=== PATIENT | female | born 1940 | race Two or more races ===

== ENCOUNTER 2017-01-18 12:39 | Inpatient (IN) | payer MEDICAID, MEDICARE ==
[~2017-01-18] VITALS: Ht 152.4 cm; Wt 88.0 kg
[~2017-01-18 12:39] MED LIST: ALBU2.5V13 NEB; ALLA266C2 TP; ASPI81TA2 PO; Bisacodyl PO; DOCU-25 PO; ESOM40CA PO; FLUT1DIS3 IH; FURO-144 PO; GABA100C PO; HYDR-3326 PO; HYDR-3976 PO; LACT1CAP72 PO; METO5TAB7 PO; PREG75CA PO; TRAM50TA2 PO
--- NOTE | 2017-01-18 13:45 | NUR ---
bib ra for abnormal labs, dr. villagomez referral, patient is verbally responsive, a/ox 3 x nepali speaking, p atient will be seen by md at bedside, not ambulatory, has a sacral wound, will continue to monitor closely.
[2017-01-18 13:55] LABS: BASOPHILS % (AUTO) 0.4 % (0.0-2.0); EOSINOPHILS # (AUTO) 0.5 /CMM (0.0-0.7); EOSINOPHILS % (AUTO) 4.2 % (0.0-6.0); HEMATOCRIT 24 % (33-45); HEMOGLOBIN 7.7 g/dL (11.5-14.8); LYMPHOCYTES # (AUTO) 2.3 /CMM (0.8-4.8); LYMPHOCYTES % (AUTO) 18.4 % (20.0-44.0); MEAN CORPUSCULAR HEMOGLOBIN 26 PG (26.0-33.0); MEAN CORPUSCULAR HGB CONC 32 g/dl (31.0-36.0); MEAN CORPUSCULAR VOLUME 79 fL (82-100); MONOCYTES # (AUTO) 0.7 /CMM (0.1-1.30); MONOCYTES % (AUTO) 5.6 % (2.0-12.0); NEUTROPHILS % (AUTO) 71.4 % (43.0-81.0); PLATELET COUNT (AUTO) 729 /CMM (150-450); RDW COEFFICIENT OF VARIATION 15.5 (11.5-15.0); RED BLOOD CELL COUNT(AUTO) 3.01 MIL/uL (4.0-5.2); WHITE BLOOD COUNT (AUTO) 12.5 K/uL (4.3-11.0)
[2017-01-18] MEDS ORDERED: RIVA10TA PO (14:05)
[2017-01-18] MEDS ORDERED: PANT40TA2 PO (14:05)
[2017-01-18] MEDS ORDERED: BISA-79 PO (14:05)
[2017-01-18] MEDS ORDERED: ASCO500T9 PO (14:05)
[2017-01-18] MEDS ORDERED: MULT1TAB11 PO (14:05)
[2017-01-18] MEDS ORDERED: FERR-58 PO (14:05)
[2017-01-18] MEDS ORDERED: ARGI1POW13 PO (14:06)
[2017-01-18] MEDS ORDERED: ALBU2.5V38 NEB (14:06)
[2017-01-18 14:09] LABS: INR 1.13 (0.87-1.13); PROTHROMBIN TIME 11.9 SECS (9.5-12.7)
[2017-01-18 14:18] LABS: ALANINE AMINOTRANSFERASE 11 U/L (12-78); ALKALINE PHOSPHATASE 89 U/L (46-116); ASPARTATE AMINOTRANSFERASE 17 U/L (15-37); BILIRUBIN,DIRECT 0.1 mg/dL (0.0-0.2); BILIRUBIN,TOTAL 0.2 mg/dL (0.2-1.0); CALCIUM, SERUM 8.5 mg/dL (8.5-10.1); CARBON DIOXIDE 34 mmol/L (21-32); CHLORIDE 94 mmol/L (98-107); CREATININE 0.8 mg/dL (0.6-1.3); GLUCOSE 100 mg/dL (74-106); LIPASE 260 U/L (73-393); SODIUM SERUM 135 mmol/L (136-145); TOTAL PROTEIN, SERUM 7.3 g/dL (6.4-8.2); UREA NITROGEN, BLOOD 26 mg/dL (7-18)
[2017-01-18 14:19] LABS: POTASSIUM 2.6 mmol/L (3.5-5.1)
[2017-01-18 14:23] LABS: TROPONIN I < 0.017 ng/mL (0.00-0.056)
[2017-01-18] MEDS ORDERED: HYDROMORPHONE 1 MG/1 ML DISP.SYRIN ONE (14:28)
[2017-01-18] MEDS ORDERED: POTASSIUM CL. PREMIX PERIPHER. 50 ML IV SCH ×2 (14:30→15:30)
[2017-01-18] MEDS ORDERED: HYDROMORPHONE 1 MG/1 ML DISP.SYRIN IM ONE (14:30)
--- NOTE | 2017-01-18 14:34 | NUR ---
PAGED DR. BIRMINGHAM
[2017-01-18] MEDS ORDERED: IV SET PRIMARY PUMP SET 1 EA INFUS.SET MC ONE ×2 (14:43→16:24)
[2017-01-18] MEDS ORDERED: IV NS 0.9% 250 ML IV ONE ×3 (14:43→17:39)
[2017-01-18] MEDS ORDERED: POTASSIUM CL. PREMIX PERIPHER. 50 ML ONE (14:43)
--- NOTE | 2017-01-18 15:00 | NUR ---
nurse for room [address] kidd and pharmacy notified of second bag of kcl to be infused on floor,
[2017-01-18 15:30] VITALS: BP 99/66
--- NOTE | 2017-01-18 15:31 | NUR ---
MOBILITY ENGINEERSTRATEGIC BUYER RECEIVED PT A/OX3 ALERT. PT STATES CHRONIC GENERALIZED PAIN WHICH PAIN MEDICATION HELPED IN ER. PT DENIES SOB DIFFICULTY BREATHING AT THIS TIME. CHRONIC NC O2 USER ON 2LPM TOLERATING WELL. PT HAS POTASSIUM INFUSING AT THIS TIME THROUGH IV MIDLINE. FORD RN ASSISTED WITH TRANSLATION. PT PLEASANT AND STARTS TO CRY OUT WHEN PEOPLE WALK AWAY FROM HER SIDE. FREQUENT ROUNDING FOR EMOTIONAL SUPPORT FOR PATIENT. PT APPEARS STABLE AT THIS TIME. AWARE WE WILL TAKE PHOTOS AND COLLECT WOUND CULTURES TO CHECK SKIN. PT LEFT WITH CALL LIGHT IN REACH, BED LOWERED AND LOCKED, RAILS UPX3 FOR SAFETY AND BED ALARM ON. WILL ROUND Q2H OR LESS PER NEEDS
--- NOTE | 2017-01-18 15:45 | NUR ---
LAW OFFICE RECEPTIONIST NOTES TELE AFIB 77
--- NOTE | 2017-01-18 15:55 | NUR ---
ELECTRICIAN THIRD NOTES PER MD BIRMINGHAM REPEAT CBC AT 1900 AND IF HGB 7.7 AND UNDER TRANSFUSE 1 UNIT OF PRBC
[2017-01-18 16:00] VITALS: BP 99/66
[2017-01-18] MEDS ORDERED: MAG HYDROX/AL HYDROX/SIMETH 30 ML UDC PO PRN (16:30)
[2017-01-18] MEDS ORDERED: ZOLPIDEM TARTRATE 5 MG TABLET PO PRN (16:30)
[2017-01-18] MEDS ORDERED: ACETAMINOPHEN 325 MG TABLET PO PRN (16:30)
[2017-01-18] MEDS ORDERED: MAGNESIUM HYDROXIDE 30 ML UDC PO PRN (16:30)
[2017-01-18] MEDS ORDERED: TRAMADOL HCL 50 MG TABLET PO PRN (16:30)
[2017-01-18] MEDS ORDERED: Z GUARD REMEDY 2 OZ OINT TP PRN (16:30)
[2017-01-18] MEDS ORDERED: ONDANSETRON HCL/PF 4 MG/2 ML VIAL IVP PRN (16:30)
[2017-01-18] MEDS: HYDROGEL DRESSING 90 GM TUBE TP SCH (16:50)
[2017-01-18] MEDS: DOCUSATE SODIUM 100 MG CAPSULE PO SCH (16:50)
[2017-01-18] MEDS: FERROUS SULFATE (325 MG) 325 MG/TAB TABLET PO SCH (16:50)
[2017-01-18] MEDS: GABAPENTIN 100 MG CAPSULE PO SCH (16:50)
[2017-01-18] MEDS ORDERED: Medication Not On Formulary EA (Arginine/Ascorbate Sod/Vite AC (Arginaid Powder) 1 EACH) PO SCH (17:00)
--- NOTE | 2017-01-18 18:25 | NUR ---
RADIO JOURNALIST CLOSING PT STABLE WOUND CARE COMPLETED. NO SOB, DIFFICULTY BREATHING AND PT APPEARS STABLE. PT LEFT WITH CALL LIGHT IN REACH, BED LOWERED AND LOCKED, RAILS UPX3 FOR SAFETY AND WILL ENDORSE CARE TO RN FOR JUSTEN. Addendum: 01/18/17 at 1826 by DANYELLE DICKENS RN PT TOLERATING 2LPM NC AND CHA INPLACE AND DRAINING CLEAR YELLOW URINE Addendum: 01/18/17 at 1832 by DANYELLE DICKENS RN CALL LIGHT IN REACH, BED LOWERED AND LOCKED, RAILS UP X3 WITH BED ALARM ON
[2017-01-18 19:51] LABS: BASOPHILS # (AUTO) 0.1 /CMM (0.0-0.2); BASOPHILS % (AUTO) 0.6 % (0.0-2.0); EOSINOPHILS # (AUTO) 0.7 /CMM (0.0-0.7); EOSINOPHILS % (AUTO) 5.5 % (0.0-6.0); HEMATOCRIT 26 % (33-45); HEMOGLOBIN 8.1 g/dL (11.5-14.8); LYMPHOCYTES # (AUTO) 2.9 /CMM (0.8-4.8); LYMPHOCYTES % (AUTO) 21.9 % (20.0-44.0); MEAN CORPUSCULAR HEMOGLOBIN 25 PG (26.0-33.0); MEAN CORPUSCULAR HGB CONC 32 g/dl (31.0-36.0); MEAN CORPUSCULAR VOLUME 80 fL (82-100); MONOCYTES # (AUTO) 0.9 /CMM (0.1-1.30); MONOCYTES % (AUTO) 6.9 % (2.0-12.0); NEUTROPHILS # (AUTO) 8.5 /CMM (1.8-8.9); NEUTROPHILS % (AUTO) 65.1 % (43.0-81.0); PLATELET COUNT (AUTO) 749 /CMM (150-450); RDW COEFFICIENT OF VARIATION 15.7 (11.5-15.0); RED BLOOD CELL COUNT(AUTO) 3.22 MIL/uL (4.0-5.2); WHITE BLOOD COUNT (AUTO) 13.1 K/uL (4.3-11.0)
--- NOTE | 2017-01-18 19:57 | NUR ---
RECEIVED PATIENT IN BED, ALERT AND ORIENTED X3, ANXIOUS, CRYING, NO SOB, NO RESPIRATORY DISTRESS, ON 02 VIA NC, O2 SAT 95%, ABLE TO VERBALIZE NEEDS IN SLOVENIAN, NEEDS TOUR AGENT. PER TOUR AGENT, PATIENT IS HUNGRY, NPO EXCEPT MEDS. ON TELEMETRY WITH READING OF AFIB, CHA CATHETER IS DRAINING WELL. LEFT UPPER ARM MIDLINE IS PATENT AND FLUSHED. EXPLAINED TO PATIENT DIET RESTRICTION. MADE COMFORTABLE, CALL LIGHT WITHIN REACH.
[2017-01-18 20:00] VITALS: BP 99/70
--- NOTE | 2017-01-18 20:02 | NUR ---
PAGED CARDIOVASCULAR PHYSICIAN ASSISTANT MD TO REPORT ALBUMIN LEVEL, AWAITING CALL BACK
--- NOTE | 2017-01-18 20:19 | NUR ---
DR. JENNINGS AGREED TO PUT PATIENT NPO AFTER MIDNIGHT, CAN HAVE FOOD BEFORE THEN. NO NEW ORDER TO REPLACE ALBUMIN.
--- NOTE | 2017-01-18 20:22 | NUR ---
REPEAT CBC DONE 19:34, H/H 8.12/10, NO BLOOD TRANSFUSION, PER ORDER IF HGB IS LOWER THAN 7.7 TRANSFUSE 1 BAG PRBC.
--- NOTE | 2017-01-18 20:45 | NUR ---
PATIENT ATE HALF OF SANDWICH, NO DIFFICULTY SWALLOWING, ABLE TO DRINK WATER AND JUICE WITHOUT COUGHING.
[2017-01-18] MEDS: BISACODYL (5 MG) 5 MG TABLET.DR PO SCH (21:16)
[2017-01-18] MEDS: HYDROCODONE/APAP 5/325MG 1 EACH TABLET PO PRN (23:56)
[2017-01-19] VITALS: BP 113/79
[2017-01-19 04:00] VITALS: BP 104/59
--- NOTE | 2017-01-19 06:30 | NUR ---
PATIENT IS AWAKE AND ALERT, NO SOB, NO DISTRESS, DENIES ANY PAIN AT THIS TIME. SLEPT FOR 6 HOURS. NO ADVERSE CHANGE OF CONDITION DURING SHIFT. WOUND CARE RENDERED, TURNED AND REPOSITIONED. NEEDS ATTENDED, CALL LIGHT WITHIN REACH.
[2017-01-19 07:46] LABS: CALCIUM, SERUM 8.6 mg/dL (8.5-10.1); CREATININE 0.8 mg/dL (0.6-1.3); MAGNESIUM 1.4 mg/dL (1.8-2.4); PHOSPHORUS 3.9 mg/dL (2.5-4.9)
[2017-01-19 07:50] LABS: POTASSIUM 2.7 mmol/L (3.5-5.1)
[2017-01-19 08:00] VITALS: BP 92/60
--- NOTE | 2017-01-19 08:09 | NUR ---
RN AM NOTES Received pt. in stable condition lying peacefully in bed awake. No SOB noted. Will continue to monitor.
[2017-01-19] MEDS: ASPIRIN 81 MG TAB.CHEW PO SCH (08:37)
[2017-01-19] MEDS: ASCORBIC ACID 500 MG TABLET PO SCH (08:38)
[2017-01-19] MEDS: METOLAZONE 2.5 MG TABLET PO SCH (08:38)
[2017-01-19] MEDS: FERROUS SULFATE (325 MG) 325 MG/TAB TABLET PO SCH (08:38)
[2017-01-19] MEDS: DOCUSATE SODIUM 100 MG CAPSULE PO SCH ×2 (08:38→16:10)
[2017-01-19] MEDS: GABAPENTIN 100 MG CAPSULE PO SCH ×3 (08:38→16:10)
[2017-01-19] MEDS: PANTOPRAZOLE 40 MG TABLET.DR PO SCH (08:38)
[2017-01-19] MEDS: FUROSEMIDE 40 MG TABLET PO SCH (08:39)
[2017-01-19] MEDS: MULTIVITAMINS W-MINERALS 1 TAB TABLET PO SCH (08:39)
--- NOTE | 2017-01-19 09:01 | NUR ---
Pt. seen by Dr. Crockett. Ok to start PO intake. No need for any GI procedures
[2017-01-19 09:06] LABS: BASOPHILS % (AUTO) 0.6 % (0.0-2.0); EOSINOPHILS # (AUTO) 0.4 /CMM (0.0-0.7); EOSINOPHILS % (AUTO) 6.1 % (0.0-6.0); HEMATOCRIT 25 % (33-45); HEMOGLOBIN 7.7 g/dL (11.5-14.8); LYMPHOCYTES # (AUTO) 1.4 /CMM (0.8-4.8); LYMPHOCYTES % (AUTO) 19.5 % (20.0-44.0); MEAN CORPUSCULAR HEMOGLOBIN 25 PG (26.0-33.0); MEAN CORPUSCULAR HGB CONC 31 g/dl (31.0-36.0); MEAN CORPUSCULAR VOLUME 80 fL (82-100); MONOCYTES # (AUTO) 0.4 /CMM (0.1-1.30); MONOCYTES % (AUTO) 5.1 % (2.0-12.0); NEUTROPHILS # (AUTO) 4.9 /CMM (1.8-8.9); NEUTROPHILS % (AUTO) 68.7 % (43.0-81.0); PLATELET COUNT (AUTO) 611 /CMM (150-450); RDW COEFFICIENT OF VARIATION 16.3 (11.5-15.0); RED BLOOD CELL COUNT(AUTO) 3.12 MIL/uL (4.0-5.2); WHITE BLOOD COUNT (AUTO) 7.1 K/uL (4.3-11.0)
[2017-01-19] MEDS ORDERED: SECONDARY IV SET 1 EA INFUS.SET MC ONE ×3 (09:40→16:00)
[2017-01-19] MEDS ORDERED: IV SET PRIMARY PUMP SET 1 EA INFUS.SET MC ONE ×2 (09:40→16:05)
[2017-01-19] MEDS ORDERED: IV NS 0.9% 250 ML IV ONE ×3 (09:40→15:54)
[2017-01-19] MEDS: POTASSIUM CL. PREMIX PERIPHER. 50 ML IV SCH ×6 (09:48→16:47)
[2017-01-19 11:14] LABS: EOSINOPHILS % (MANUAL) 4 % (0-4); LYMPHOCYTES % (MANUAL) 15 % (16-48); MONOCYTES % (MANUAL) 3 % (0-11.0); NEUTROPHILS % (MANUAL) 78 (42-76)
[2017-01-19 11:17] LABS: ANISOCYTOSIS 1+; HYPOCHROMASIA 1+; PLATELET ESTIMATE INCREASED
--- NOTE | 2017-01-19 11:45 | NUR ---
Dr. Curtis was informed regarding low H& H level. No new orders at this time.
[2017-01-19] MEDS: HYDROGEL DRESSING 90 GM TUBE TP SCH (12:16)
[2017-01-19] MEDS: Magnesium 1GM/D5W 100ML PREMIX 100 ML IV SCH ×4 (13:45→22:32)
[2017-01-19] MEDS: ALBUTEROL FS 2.5 MG/3 ML VIAL.NEB NEB PRN ×2 (13:51→21:52)
[2017-01-19] MEDS ORDERED: Magnesium 1GM/D5W 100ML PREMIX 100 ML IV SCH (14:30)
[2017-01-19] MEDS ORDERED: FEE PK DOSING 1 MIN EA MC ONE (14:34)
[2017-01-19 16:00] VITALS: BP 130/86
[2017-01-19] MEDS: CEFTRIAXONE 1 G in IV D5W 50 ML IV SCH (16:04)
[2017-01-19] MEDS: VANCOMYCIN 1 GM in IV D5W 250 ML IV SCH (16:46)
--- NOTE | 2017-01-19 18:43 | NUR ---
RN CLOSING NOTES Pt in stable condition. K+ replaced and MG+ running. No SOB or distress noted. Repositioned and kept clean. Will endorse to next shift in stable condition for JUSTEN.
--- NOTE | 2017-01-19 19:15 | NUR ---
RN MS - INITIAL NOTES RECEIVED PATIENT IN BED, CURRENTLY SLEEPING AT THIS TIME. NO S/S OF SOB OR ANY DISCOMFORT NOTED. BED IN LOW POSITION AND LOCKED. SIDERAILS X2 UP. WILL F/U WITH PHARMACY REGARDING MAGNESIUM 1GM. WILL CONTINUE TO MONITOR PATIENT
[2017-01-19 20:00] VITALS: BP 119/65
--- NOTE | 2017-01-19 22:00 | NUR ---
RN MS - NOTES PATIENT IS COMPLAINING OF CHEST PAIN WITH BREATHING. DOES NO RADIATE TO ARM. VITAL SIGNS REMAIN STABLE CURRENTLY AT 128/56, RI: 83, 100% SAT. PER DAUGHTER, PATIENT TAKES THEOPHYLLINE 300MG AT HOME WHENEVER SHE FEELS CHEST PAIN WITH BREATHING. ORDERED STAT EKG, RT INFORMED. WILL INFORM ON-CALL M.Ron.
[2017-01-19] MEDS: BISACODYL (5 MG) 5 MG TABLET.DR PO SCH (22:32)
--- NOTE | 2017-01-19 23:00 | NUR ---
RN MS - NOTES RELAYED EKG INFORMATION TO ON-CALL M.D. ALSO ORDERED THEOPHYLLINE 300MG SR.12. PATIENT REMAINS STABLE. CURRENTLY ASLEEP AT THIS MOMENT.
[2017-01-19] MEDS ORDERED: THEOPHYLLINE ANHYDROUS 300 MG CAP.SR.24H PO SCH (23:30)
[2017-01-19] MEDS ORDERED: THEOPHYLLINE ANHYDROUS 300 MG TAB.SR.12H ONE (23:58)
[2017-01-20] MEDS: THEOPHYLLINE ANHYDROUS 300 MG TAB.SR.12H PO SCH ×3 (00:10→21:26)
[2017-01-20] MEDS: ALBUTEROL FS 2.5 MG/3 ML VIAL.NEB NEB PRN (04:23)
[2017-01-20 07:48] LABS: CALCIUM, SERUM 8.8 mg/dL (8.5-10.1); CREATININE 0.7 mg/dL (0.6-1.3); MAGNESIUM 2.5 mg/dL (1.8-2.4); POTASSIUM 3.1 mmol/L (3.5-5.1)
[2017-01-20 08:00] VITALS: BP 122/76
[2017-01-20] MEDS: PANTOPRAZOLE 40 MG TABLET.DR PO SCH (08:14)
[2017-01-20] MEDS: METOLAZONE 2.5 MG TABLET PO SCH (08:14)
[2017-01-20] MEDS: FUROSEMIDE 40 MG TABLET PO SCH (08:15)
[2017-01-20] MEDS: DOCUSATE SODIUM 100 MG CAPSULE PO SCH ×2 (08:15→17:24)
[2017-01-20] MEDS: HYDROCODONE/APAP 5/325MG 1 EACH TABLET PO PRN ×2 (08:15→20:41)
[2017-01-20] MEDS: MULTIVITAMINS W-MINERALS 1 TAB TABLET PO SCH (08:15)
[2017-01-20] MEDS: GABAPENTIN 100 MG CAPSULE PO SCH ×3 (08:16→17:23)
[2017-01-20] MEDS: ASCORBIC ACID 500 MG TABLET PO SCH (08:16)
[2017-01-20] MEDS: ASPIRIN 81 MG TAB.CHEW PO SCH (08:16)
[2017-01-20] MEDS: HYDROGEL DRESSING 90 GM TUBE TP SCH (08:17)
[2017-01-20 08:28] LABS: BASOPHILS # (AUTO) 0.1 /CMM (0.0-0.2); BASOPHILS % (AUTO) 0.6 % (0.0-2.0); EOSINOPHILS # (AUTO) 0.1 /CMM (0.0-0.7); HEMATOCRIT 25 % (33-45); HEMOGLOBIN 7.9 g/dL (11.5-14.8); LYMPHOCYTES # (AUTO) 1.6 /CMM (0.8-4.8); LYMPHOCYTES % (AUTO) 10.8 % (20.0-44.0); MEAN CORPUSCULAR HEMOGLOBIN 25 PG (26.0-33.0); MEAN CORPUSCULAR HGB CONC 32 g/dl (31.0-36.0); MEAN CORPUSCULAR VOLUME 80 fL (82-100); MONOCYTES # (AUTO) 0.8 /CMM (0.1-1.30); MONOCYTES % (AUTO) 5.4 % (2.0-12.0); NEUTROPHILS # (AUTO) 12.5 /CMM (1.8-8.9); NEUTROPHILS % (AUTO) 82.2 % (43.0-81.0); PLATELET COUNT (AUTO) 815 /CMM (150-450); RDW COEFFICIENT OF VARIATION 16.6 (11.5-15.0); RED BLOOD CELL COUNT(AUTO) 3.12 MIL/uL (4.0-5.2); WHITE BLOOD COUNT (AUTO) 15.2 K/uL (4.3-11.0)
[2017-01-20] MEDS: VANCOMYCIN 1 GM in IV D5W 250 ML IV SCH (09:32)
[2017-01-20] MEDS: POTASSIUM CHLORIDE 20 MEQ TAB.PRT.SR PO SCH ×2 (12:21→13:49)
--- NOTE | 2017-01-20 12:43 | NUR ---
MS RN NOTES MENTIONED TO DR VARGAS WHO IS ON THE FLOOR THAT THE PATIENT HAS EPISODES OF EXTREME ANXIETY. MD GAVE VERBAL ORDER FOR PO ATIVAN 0.5MG Q8H PRN. WILL PLACE ORDER.
[2017-01-20] MEDS ORDERED: SECONDARY IV SET 1 EA INFUS.SET MC ONE (13:59)
[2017-01-20] MEDS: SOD FERRIC GLUC 125 MG in IV NS 0.9% 100 ML IV SCH (14:10)
[2017-01-20 14:58] LABS: APPEARANCE,URINE CLEAR (CLEAR); BILIRUBIN,URINE NEGATIVE (NEGATIVE); BLOOD, URINE NEGATIVE Ery/uL (NEGATIVE); COLOR,URINE YELLOW (YELLOW); KETONES,URINE NEGATIVE (NEGATIVE); LEUKOCYTE ESTERASE ,URINE 1+ (NEGATIVE); NITRITE, URINE NEGATIVE (NEGATIVE); PROTEIN,URINE NEGATIVE (NEGATIVE); UGLUCOSE NEGATIVE (NEGATIVE); UROBILINOGEN,URINE 0.2 EU/dL (0.2)
[2017-01-20] MEDS: CEFTRIAXONE 1 G in IV D5W 50 ML IV SCH (15:35)
[2017-01-20 16:10] LABS: RBC,URINE 0-2 /HPF (0-2)
[2017-01-20 16:11] LABS: ADD URINE CULTURE YES; BACTERIA,URINE Few /HPF (None Seen); SQUAMOUS EPITHELIAL CELL,UR Few /HPF (None Seen)
[2017-01-20 16:14] VITALS: BP 110/62
--- NOTE | 2017-01-20 18:45 | NUR ---
MS RN CLOSING NOTES NO SIGNIFICANT CHANGES IN PATIENT CONDITION THROUGHOUT THE SHIFT. NO SOB OR DISTRESS NOTED AT THIS TIME. PATIENT DENIES PAIN. CHA CATHETER ATTACHED TO DRAINAGE BAG AND DRAINING PAIL YELLOW URINE. BED IN A LOW POSITION, CALL LIGHT WITHIN PATIENT REACH. WILL ENDORSE FOR JUSTEN.
--- NOTE | 2017-01-20 19:10 | NUR ---
MS/LIBRARY CLERK TALKING BOOKS; RECEIVED PT. IN BED SLEEPING. NO S/S OF RESP. DISTRESS. BREATHING NON LABORED AND EVEN. WITH O2 2L NC ON. MIDLINE SULLY INTACT WITH DRESSING. FC INTACT WITH 50 ML CLEAR YELLOW URINE. ON CONTACT ISOLATION OBSERVED. BED ON LOWER POSITION AND LOCKED FOR SAFETY. SIDE RAILS ARE UP FOR SAFETY.
[2017-01-20 20:00] VITALS: BP 112/67
--- NOTE | 2017-01-20 20:40 | NUR ---
MS/GENERAL SALES MANAGER; C/O ABDOMINAL PAIN PER DAUGHTER ON THE PHONE / RETURN TO SERVICE INSPECTOR. NORCO 5- 325 MG 1 TAB. PO Q4 PRN GIVEN SWALLOW OK WITHOUT PROBLEM.
--- NOTE | 2017-01-20 21:25 | NUR ---
MS/SMELTING ENGINEER; PT SLEEPING AT THIS TIME. BREATHING NON LABORED.
[2017-01-20] MEDS: BISACODYL (5 MG) 5 MG TABLET.DR PO SCH (21:27)
--- NOTE | 2017-01-21 02:00 | NUR ---
MS/TRAIN OPERATIONS SUPERVISOR; SLEEPING AT THIS TIME.
--- NOTE | 2017-01-21 04:30 | NUR ---
MS/FINANCIAL SERVICES INTERNSHIP; INCONTINENT OF BM MOD AMOUNT. DANNY ANAL CARE DONE. DRESSING CHANGED TO SACRAL AND RT BUTTOCK DUE STAINED WITH BM. RT LOWER LEG MEPILEX CHANGED. REPOSITIONED TO SUPINE POSITION. PT APPEARED COOPERATIVE .
[2017-01-21] MEDS: VANCOMYCIN 1 GM in IV D5W 250 ML IV SCH (04:51)
--- NOTE | 2017-01-21 05:00 | NUR ---
unable to scan barcode of vanco 1gm IV medication, verified with charger operator helper nurse Maryan RN , right pt, rt time, right dose. administered medication
--- NOTE | 2017-01-21 06:42 | NUR ---
MS/BALL HOLDER; SLEPT FAIRLY. BREATHING NON LABORED. FC INTACT. CONTINUE TO MONITOR. CALL LIGHT WITHIN REACH. WILL ENDORSE TO THE DAY SHIFT NURSE FOR JUSTEN.
[2017-01-21 06:50] LABS: CALCIUM, SERUM 8.6 mg/dL (8.5-10.1); CREATININE 0.7 mg/dL (0.6-1.3)
--- NOTE | 2017-01-21 07:18 | NUR ---
ULTRASOUND COORDINATOR INITIAL NOTES RECEIVED PT. IN BED AWAKE, ALERT AND RESPONSE TO SIMPLE COMMANDS. O2 SUPPLEMENTAL 02 VIA N/C @ 2LPM, NO S/S OF RESPIRATORY DISTRESS NOTED. MIDLINE @ SULLY INTACT AND PATENT. CHA CATH INTACT WITH 100 ML CLEAR YELLOW URINE TO BEDSIDE DRAINAGE BAG. 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 CALL LIGHT WITHIN REACH, BED ON LOW POSITION, LOCKED AND SIDE-RAILS UP. ALL SAFETY MEASURES MAINTAINED. WILL CONTINUE TO MONITOR ACCORDINGLY. Addendum: 01/21/17 at 0749 by BENEDICTO DAY RN ERROR: PATIENT NOT ON TELE BUT MS
[2017-01-21 08:00] VITALS: BP 102/58
[2017-01-21 08:01] LABS: POTASSIUM 2.3 mmol/L (3.5-5.1)
[2017-01-21] MEDS: METOLAZONE 2.5 MG TABLET PO SCH (08:48)
[2017-01-21] MEDS: GABAPENTIN 100 MG CAPSULE PO SCH ×3 (08:48→17:01)
[2017-01-21] MEDS: MULTIVITAMINS W-MINERALS 1 TAB TABLET PO SCH (08:48)
[2017-01-21] MEDS: DOCUSATE SODIUM 100 MG CAPSULE PO SCH ×2 (08:48→17:01)
[2017-01-21] MEDS: FUROSEMIDE 40 MG TABLET PO SCH (08:49)
[2017-01-21] MEDS: ASCORBIC ACID 500 MG TABLET PO SCH (08:49)
[2017-01-21] MEDS: PANTOPRAZOLE 40 MG TABLET.DR PO SCH (08:51)
[2017-01-21] MEDS: ASPIRIN 81 MG TAB.CHEW PO SCH (08:52)
[2017-01-21] MEDS: HYDROGEL DRESSING 90 GM TUBE TP SCH (08:52)
[2017-01-21] MEDS: HYDROCODONE/APAP 5/325MG 1 EACH TABLET PO PRN (08:56)
--- NOTE | 2017-01-21 09:40 | NUR ---
RN NOTES PATIENT NOTED WITH POTASSIUM LEVEL OF 2.3, MD MADE AWARE WITH ORDER TO GIVE 80MEQ OF KCL TAB ORALLY TODAY. WILL CONTINUE TO MONITOR
[2017-01-21] MEDS: THEOPHYLLINE ANHYDROUS 300 MG TAB.SR.12H PO SCH ×2 (09:53→22:09)
[2017-01-21 10:24] LABS: BASOPHILS # (AUTO) 0.1 /CMM (0.0-0.2); EOSINOPHILS # (AUTO) 0.3 /CMM (0.0-0.7); EOSINOPHILS % (AUTO) 2.1 % (0.0-6.0); HEMATOCRIT 25 % (33-45); HEMOGLOBIN 7.7 g/dL (11.5-14.8); LYMPHOCYTES # (AUTO) 1.6 /CMM (0.8-4.8); LYMPHOCYTES % (AUTO) 13.3 % (20.0-44.0); MEAN CORPUSCULAR HEMOGLOBIN 25 PG (26.0-33.0); MEAN CORPUSCULAR HGB CONC 31 g/dl (31.0-36.0); MEAN CORPUSCULAR VOLUME 81 fL (82-100); MONOCYTES # (AUTO) 0.7 /CMM (0.1-1.30); MONOCYTES % (AUTO) 5.4 % (2.0-12.0); NEUTROPHILS # (AUTO) 9.5 /CMM (1.8-8.9); NEUTROPHILS % (AUTO) 78.2 % (43.0-81.0); PLATELET COUNT (AUTO) 754 /CMM (150-450); RDW COEFFICIENT OF VARIATION 16.4 (11.5-15.0); RED BLOOD CELL COUNT(AUTO) 3.06 MIL/uL (4.0-5.2); WHITE BLOOD COUNT (AUTO) 12.2 K/uL (4.3-11.0)
[2017-01-21] MEDS: POTASSIUM CHLORIDE 20 MEQ TAB.PRT.SR PO SCH ×2 (11:39→14:36)
[2017-01-21] MEDS: SOD FERRIC GLUC 125 MG in IV NS 0.9% 100 ML IV SCH (14:34)
[2017-01-21] MEDS: CEFTRIAXONE 1 G in IV D5W 50 ML IV SCH (15:23)
[2017-01-21 16:00] VITALS: BP 106/71
[2017-01-21] MEDS: ALBUTEROL FS 2.5 MG/3 ML VIAL.NEB NEB PRN (17:52)
--- NOTE | 2017-01-21 18:44 | NUR ---
RN CLOSING NOTES PATIENT RESTING IN BED ALERT AND ORIENTED X 3. HEAD OF BED ELEVATED. ALL NEEDS AND CARE WELL PROVIDED. DUE MEDS GIVEN ORDERED. MAINTAINED ON 02 VIA N/C @ 2LPM, NO ACUTE SIGNS OF RESPIRATORY DISTRESS NOTED. CALL LIGHT WITHIN REACH. BED LOW AND LOCKED WITH SIDE-RAILS UP. PATIENT NOTED WITH HGB OF 7.7, WENT TO COLLECT PRBC X1 UNIT BUT SAID THAT TYPE AND SCREEN SHOULD BE TAKEN FIRST THEN LAB WILL CALL FOR RESULT BEFORE BLOOD TO BE TRANSFUSED. ALL SAFETY MEASURES MAINTAINED. WILL ENDORSED TO RN NURSE FOR CONTINUITY OF CARE.
[2017-01-21] MEDS ORDERED: IV NS 0.9% 250 ML IV ONE (19:07)
[2017-01-21 19:13] LABS: CALCIUM, SERUM 8.7 mg/dL (8.5-10.1); CREATININE 0.8 mg/dL (0.6-1.3)
--- NOTE | 2017-01-21 19:30 | NUR ---
MS/DENTAL SECRETARY; RECEIVED PT. IN BED AWAKE, ALERT AND VERBALLY RESPONSIVE. BREATHING NON LABORED. WITH O2 2L NC. MIDLINE ON SULLY INTACT. FC INTACT WITH CLEAR YELLOW URINE 50 ML. BED ON LOWER POSITION AND LOCKED FOR SAFETY. SIDE RAILS ARE UP FOR SAFETY. ON CONTACT ISOLATION OBSERVED.
[2017-01-21 19:36] LABS: POTASSIUM 2.6 mmol/L (3.5-5.1)
[2017-01-21] MEDS ORDERED: BLOOD IV SET 1 EA INFUS.SET MC ONE (19:50)
--- NOTE | 2017-01-21 19:53 | NUR ---
RN NOTES RECEIVED CALL FROM LAB THAT PATIENT HAS POTASSIUM LEVEL OF 2.6 AND SODIUM LEVEL OF 132. CALLED [facility] OF DOCTORS AND INFORMED THAT DR Jose GANDHI IS THE DOCTOR OUTBOUND CALL CENTER REPRESENTATIVE TONIGHT. MANAGER GENERAL WILL INFORMED DR GANDHI AND WILL CALL BACK. ENDORSED TO FIREWORKS ASSEMBLY SUPERVISOR RN TO FOLLOW-UP
[2017-01-21] MEDS ORDERED: SECONDARY IV SET 1 EA INFUS.SET MC ONE (19:54)
[2017-01-21 20:00] VITALS: BP 141/71
--- NOTE | 2017-01-21 20:21 | NUR ---
RN NOTES PATIENT NOTED WITH HGB OF 7.7 WITH STANDING ORDER TO GIVE 1U BAG OF PRBC IF HGB IS 7.7 AND BELOW. TWO RN NURSES OBTAINED TELEPHONE CONSENT FROM GRANDDAUGHTER CECI FAN. SCREEN AND TYPE DONE AT LAB. 1 UNIT OF PRBC COLLECTED AND VERIFIED BY 2 NURSES BEFORE STARTED. V/S CHECKED AND RECORDED. WILL CLOSELY MONITOR FOR ANY ADVERSE REACTIONS.
[2017-01-21 20:22] VITALS: BP 141/71
[2017-01-21 21:15] VITALS: BP 131/81
[2017-01-21] MEDS ORDERED: POTASSIUM CHLORIDE 20 MEQ TAB.PRT.SR PO ONE ×2 (21:30)
[2017-01-21] MEDS ORDERED: POTASSIUM CHLORIDE 10 MEQ/50 ML PREMIXED IVPB FOR PERIPHERAL LINE IV ONE (21:30)
--- NOTE | 2017-01-21 21:30 | NUR ---
MS/DEPENDENCY DIRECTOR; NOTED MIDLINE SULLY IS SWOLLEN. BLOOD TRANSFUSION ON HOL FOR AWHILE UNTIL NEW IV LINE IS INSERTED. MORTICIAN SUPPLIES SALES REPRESENTATIVE ANNA STARTED NEW IV LINE ON RT HAND # 20. BLOOD TRANSFUSION RESUMED BY THE CHARGE NURSE. NO REACTIONS NOTED. BREATHING NON LABORED. WILL CONTINUE TO MONITOR.
[2017-01-21] MEDS: BISACODYL (5 MG) 5 MG TABLET.DR PO SCH (22:11)
[2017-01-22] VITALS: BP 116/62
[2017-01-22] MEDS ORDERED: POTASSIUM CL. PREMIX PERIPHER. 0 ML ONE (00:22)
--- NOTE | 2017-01-22 00:30 | NUR ---
MS/FEEDER WORKER POWER UNIT OPERATOR; I PLACED A CALL TO MODESTO GANDHI NP THAT PT REFUSED K PO. MODESTO GANDHI NP SAID IF K REPLACEMENT IV WILL TAKE HOURS. SO SHE TO GIVE PO.
[2017-01-22] MEDS ORDERED: POTASSIUM CHLORIDE 20 MEQ TAB.PRT.SR PO ONE (00:41)
--- NOTE | 2017-01-22 00:50 | NUR ---
MS/MEAT COUNTER CLERK; SO K 80 MEQ PO GIVEN WITH APPLE SAUCE TAKEN.
--- NOTE | 2017-01-22 02:05 | NUR ---
MS/CASE FILLER; C/O ABDOMINAL PAIN. PT REFUSED NORCO 5-325 MG PO 1 TAB. Q4 PRN.
[2017-01-22] MEDS: LORAZEPAM 0.5 MG TABLET PO PRN ×2 (02:55→20:57)
--- NOTE | 2017-01-22 02:55 | NUR ---
MS/CLIENT COORDINATOR; PT VERY ANXIOUS , CRYING OFFERED ATIVAN 0.5 MG 1 TAB. PO Q8 PRN PT REFUSED. PT WITH GESTURE WANTS BREATHING TREATMENT. O2 SAT 95 % ON 2L NC. TEDDY GALLO RN CAME TO HELP US INTERPRET WHAT PT'S WANTS STILL SAYING BREATHING TREATMENT. RT WAS CALLED 3X SAID COMING. ALSO AT THIS TIME AM CARE DONE AND TREATMENT TO SACRAL AND BUTTOCK DONE. REPOSITIONED FOR COMFORT. WILL CONTINUE TO MONITOR.
[2017-01-22] MEDS: ALBUTEROL FS 2.5 MG/3 ML VIAL.NEB NEB PRN ×2 (03:53→13:11)
--- NOTE | 2017-01-22 04:00 | NUR ---
MS/KRISTEN; RT MILIND CAME AND GAVE BREATHING TREATMENT.
--- NOTE | 2017-01-22 07:00 | NUR ---
MS/RECORDS SECTION SUPERVISOR; NO REACTION FROM THE BLOOD TRANSFUSION LAST NIGHT. FC INTACT. CONTINUE TO MONITOR. CALL LIGHT WITHIN REACH. WILL ENDORSE TO THE DAY SHIFT NURSE.
--- NOTE | 2017-01-22 07:09 | NUR ---
MS RN INITIAL NOTES RECEIVED PATIENT AWAKE IN BED IN NO ACUTE SIGNS OF DISTRESS. ALERT AND ORIENTED X 3. SPEAKS AMHARIC AND VERY LIMITED [place], NO COMPLAINTS OF PAIN VOICED OR DISCOMFORTS AT THIS TIME. ON 02 VIA N/C @ 2LPM, NO SIGNS OF SOB NOTED. IV ACCESS ON RIGHT HAND G#20 INTACT AND PATENT. MIDLINE ON SULLY INTACT BUT SITE SLIGHTLY SWOLLEN. CHA IN PLACE AND ACTIVELY VOIDING CLEAR YELLOW URINE. CALL LIGHT WITHIN PLACE. BED LOW AND LOCKED FOR SAFETY. WILL CONTINUE TO MONITOR ACCORDINGLY.
[2017-01-22 07:50] VITALS: BP 115/71
[2017-01-22 08:00] VITALS: BP 115/71
[2017-01-22 08:16] LABS: BASOPHILS % (AUTO) 0.1 % (0.0-2.0); EOSINOPHILS % (AUTO) 0.1 % (0.0-6.0); HEMATOCRIT 27 % (33-45); HEMOGLOBIN 8.7 g/dL (11.5-14.8); LYMPHOCYTES # (AUTO) 0.8 /CMM (0.8-4.8); LYMPHOCYTES % (AUTO) 6.1 % (20.0-44.0); MEAN CORPUSCULAR HEMOGLOBIN 25 PG (26.0-33.0); MEAN CORPUSCULAR HGB CONC 32 g/dl (31.0-36.0); MEAN CORPUSCULAR VOLUME 79 fL (82-100); MONOCYTES # (AUTO) 0.5 /CMM (0.1-1.30); NEUTROPHILS # (AUTO) 11.3 /CMM (1.8-8.9); NEUTROPHILS % (AUTO) 89.7 % (43.0-81.0); PLATELET COUNT (AUTO) 730 /CMM (150-450); RDW COEFFICIENT OF VARIATION 17.5 (11.5-15.0); RED BLOOD CELL COUNT(AUTO) 3.45 MIL/uL (4.0-5.2); WHITE BLOOD COUNT (AUTO) 12.6 K/uL (4.3-11.0)
[2017-01-22 08:28] LABS: CALCIUM, SERUM 8.8 mg/dL (8.5-10.1); CREATININE 0.7 mg/dL (0.6-1.3); MAGNESIUM 1.9 mg/dL (1.8-2.4); PHOSPHORUS 3.2 mg/dL (2.5-4.9); POTASSIUM 3.6 mmol/L (3.5-5.1)
[2017-01-22] MEDS: MULTIVITAMINS W-MINERALS 1 TAB TABLET PO SCH (08:29)
[2017-01-22] MEDS: DOCUSATE SODIUM 100 MG CAPSULE PO SCH ×2 (08:29→16:55)
[2017-01-22] MEDS: PANTOPRAZOLE 40 MG TABLET.DR PO SCH (08:29)
[2017-01-22] MEDS: GABAPENTIN 100 MG CAPSULE PO SCH ×3 (08:29→16:55)
[2017-01-22] MEDS: ASPIRIN 81 MG TAB.CHEW PO SCH (08:29)
[2017-01-22] MEDS: FUROSEMIDE 40 MG TABLET PO SCH (08:30)
[2017-01-22] MEDS: METOLAZONE 2.5 MG TABLET PO SCH (08:30)
[2017-01-22] MEDS: ASCORBIC ACID 500 MG TABLET PO SCH (08:30)
[2017-01-22] MEDS: THEOPHYLLINE ANHYDROUS 300 MG TAB.SR.12H PO SCH ×2 (08:32→21:04)
[2017-01-22] MEDS: HYDROGEL DRESSING 90 GM TUBE TP SCH (08:33)
[2017-01-22] MEDS: SULFAMETH/TRIMETH 800/160 MG 1 UDTAB TABLET PO SCH ×2 (11:31→20:56)
[2017-01-22] MEDS ORDERED: LORAZEPAM INJ 2 MG/ML VIAL IVP ONE (12:20)
[2017-01-22] MEDS ORDERED: HYDROMORPHONE 1 MG/1 ML DISP.SYRIN IV ONE (13:00)
--- NOTE | 2017-01-22 13:03 | NUR ---
RN NOTES PATIENT'S NOTED VERY RESTLESS AND SCREAMING NON-STOP, EMOTIONAL SUPPORT GIVEN. MD MADE AWARE WITH ORDER TO GIVE ATIVAN .5MG IVP BUT CANCELLED INSTEAD ORDERED DILAUDED 1MG IVP. MD ORDERED ALSO TO REMOVED MIDLINE ON LEFT UPPER ARM BECAUSE ARM IS SWOLLEN AND TO DO ULTRASOUND ON SAID ARM TO R/O DVT. WILL CONTINUE TO MONITOR.
--- NOTE | 2017-01-22 14:04 | NUR ---
RN NOTES FOLLOW-UP ON PATIENT'S STATUS, SHE CALMED DOWN A BIT AND SHOUTS OCCASIONALLY. MIDLINE TO LEFT UPPER RIGHT REMOVED @ 1PM WITH NO BLEEDING NOTED. PRESSURE GAUZE APPLIED PRECAUTION. AWAITING FOR ULTRASOUND OF UPPER ARM TO BE DONE TO R/O DVT.
[2017-01-22] MEDS: SOD FERRIC GLUC 125 MG in IV NS 0.9% 100 ML IV SCH (14:57)
[2017-01-22] MEDS ORDERED: IV NS 0.9% 250 ML IV ONE (15:01)
[2017-01-22 16:00] VITALS: BP 125/78
[2017-01-22 16:11] VITALS: BP 125/78
--- NOTE | 2017-01-22 18:35 | NUR ---
RN NOTES PATIENT LEFT UPPER EXTREMITY VENOUS STUDY SHOWS NO DVT. WILL CONTINUE TO MONITOR
--- NOTE | 2017-01-22 19:05 | NUR ---
RN CLOSING NOTES PATIENT IN BED RESTING AT MODERATE HIGH BACKREST IN NO ACUTE SIGNS OF DISTRESS. ALERT AND ORIENTED X 3. QUIETL AT THIS TIME. ALL NEEDS AND CARE WELL PROVIDED. DUE MEDS GIVEN ORDERED. IV ACCESS TO RIGHT HAND, NO SIGNS OF INFILTRATION NOTED. O2 INHALATION VIA N/C @ 2LPM IN PROGRESS AND TOLERATED, 02 SAT ABOVE 94%. CHA IN PLACE WITH URINE OUTPUT OF 400ML THIS TOUR. CALL LIGHT KEPT WITHIN REACH. BED KEPT LOW AND LOCKED. WILL ENDORSED TO COIN BOX INSPECTOR FOR CONTINUITY OF CARE.
--- NOTE | 2017-01-22 19:30 | NUR ---
RN OPENING; RECEIVED PATIENT SLEEPING COMFORTABLY IN BED, ALERT AND COHERENT X3,ON ISOLATION PRECAUTION FOR MRSA WOUND(SACRAL AREA),ABLE TO MAKE NEEDS KNOWN,ON 02 AT 2L/MIN SPO2-94%, ON CHA CATH DRAINING WELL INTO YELLOWISH COLORED URINE,NO PAIN AND DISCOMFORT NOTED,NOT IN RESPIRATORY DISTRESS.BED LOW AND LOCKED,CALL LIGHT WITH IN REACH.
[2017-01-22 20:00] VITALS: BP_SYST 110; BP_SYST 79; BP_DIAS 41; BP_DIAS 54
[2017-01-22] MEDS: BISACODYL (5 MG) 5 MG TABLET.DR PO SCH (20:56)
--- NOTE | 2017-01-23 03:24 | NUR ---
RN NOTES: ABLE TO SLEEP WELL, AWAKE, NEEDS ATTENDED, EAT LITTLE AMOUNT OF HER FOOD FROM HOME AND TOOK SIPS OF WATER,KEEP ON HIGH FOWLERS POSITION.BED LOW AND LOCK, CALL LIGHT WITHIN REACH.
[2017-01-23 04:34] VITALS: BP 86/49
--- NOTE | 2017-01-23 05:27 | NUR ---
RN NOTES HAD BM,SMALL AMOUNT OF FORMED STOOL,BED BATH RENDERED CLEAN AND CHANGE, DRESSING CHANGE ON THE PRESSURE SORE AREA IN THE SACROCOCCYX AND ON THE LLE,OFF LOADING. PATIENT TOLERATE THE DRESSING CHANGE WELL.CALL LIGHT WITHIN REACH.
--- NOTE | 2017-01-23 07:00 | NUR ---
RN NOTES: ENDORSED TO MORNING SHIFT FOR CONTINUITY OF CARE,DRESSING IS INTACT, CALLS AND NEEDS ATTENDED, BED LOW AND LOCKED,ALARM ON AT ALL TIMES,CALL LIGHT WITH IN REACH, ISOLATION PRECAUTION OBSERVE.
--- NOTE | 2017-01-23 07:10 | NUR ---
MS RN INITIAL NOTES PATIENT IN BED, AWAKE. A/O X3. BREATHING EVEN AND NON LABORED, ON OXYGEN AT 2L/MIN VIA NC, NO SOB NOTED. IV IN RIGHT HAND G20 PATENT AND INTACT, FLUSHES WELL. APPEARS COMFORTABLE IN BED, JAYMIE LOWER EXT ELEVATED WITH PILLOWS. NO C/O PAIN AT THIS TIME. CALL LIGHT WITHIN REACH. ON CONTACT ISOLATION MRSA WOUND. WILL CONT TO MONITOR.
[2017-01-23 07:48] LABS: CALCIUM, SERUM 8.5 mg/dL (8.5-10.1); CREATININE 0.8 mg/dL (0.6-1.3); POTASSIUM 3.4 mmol/L (3.5-5.1)
[2017-01-23 08:00] VITALS: BP 108/68
[2017-01-23 08:16] VITALS: BP 108/68
[2017-01-23] MEDS: ASPIRIN 81 MG TAB.CHEW PO SCH (08:22)
[2017-01-23] MEDS: METOLAZONE 2.5 MG TABLET PO SCH (08:22)
[2017-01-23] MEDS: FUROSEMIDE 40 MG TABLET PO SCH (08:22)
[2017-01-23] MEDS: SULFAMETH/TRIMETH 800/160 MG 1 UDTAB TABLET PO SCH (08:22)
[2017-01-23] MEDS: DOCUSATE SODIUM 100 MG CAPSULE PO SCH (08:22)
[2017-01-23] MEDS: GABAPENTIN 100 MG CAPSULE PO SCH ×2 (08:22→12:50)
[2017-01-23] MEDS: MULTIVITAMINS W-MINERALS 1 TAB TABLET PO SCH (08:22)
[2017-01-23] MEDS: ASCORBIC ACID 500 MG TABLET PO SCH (08:23)
[2017-01-23] MEDS: PANTOPRAZOLE 40 MG TABLET.DR PO SCH (08:23)
[2017-01-23] MEDS: THEOPHYLLINE ANHYDROUS 300 MG TAB.SR.12H PO SCH (08:25)
--- NOTE | 2017-01-23 09:18 | NUR ---
PATIENT IS SEEN BY DR. VARGAS TODAY. INFORMED OF LOW POTASSIUM LEVEL 3.4, MD ORDERED POTASSIUM 40MEQ PO TAB X1 NOTED AND ACKNOWLEDGED.
[2017-01-23] MEDS ORDERED: POTASSIUM CHLORIDE 20 MEQ TAB.PRT.SR PO ONE (09:30)
[2017-01-23] MEDS: HYDROCODONE/APAP 5/325MG 1 EACH TABLET PO PRN (09:42)
[2017-01-23] MEDS: HYDROGEL DRESSING 90 GM TUBE TP SCH (09:46)
--- NOTE | 2017-01-23 10:39 | NUR ---
PATIENT TO BE DISCHARGED TO SNF ORDERED NOTED AND ACKNOWLEDGED.
--- NOTE | 2017-01-23 13:38 | NUR ---
MS RN DISCHARGED PATIENT HAS BEEN CLEARED FOR DISCHARGE TO SNF BY . V/S REMAINS STABLE. WOUND DRESSING CHANGED, PATIENT TOLERATED WELL. IV ACCESS IN RIGHT HAND REMOVED, GAUZE APPLIED, NO BLEEDING NOTED. CALLED SPOKE TO ASHISH FOR REPORT (JUAN CARLOS FARIAS). PATIENT LEFT HOSP IN STABLE CONDITION VIA AMBULANCE.
== END 2017-01-23 13:56 | DRG 663 ==
LOC: ER 12:41 → TELE 14:31 → MED 01-19 11:18
PROVIDERS: ADMIT Family Medicine; ATTEND Family Medicine
PROC: 05H633Z Insertion of Infusion Device into Left Subclavian Vein, Percutaneous Approach (ICD-10-PCS; principal; 2017-01-18)
PROC: 30233N1 Transfusion of Nonautologous Red Blood Cells into Peripheral Vein, Percutaneous Approach (ICD-10-PCS; 2017-01-21)
DX: D50.9 Iron deficiency anemia, unspecified (principal); E43 Unspecified severe protein-calorie malnutrition; L89.154 Pressure ulcer of sacral region, stage 4; I50.32 Chronic diastolic (congestive) heart failure; I27.2 Other secondary pulmonary hypertension; I48.91 Unspecified atrial fibrillation; E66.01 Morbid (severe) obesity due to excess calories; I34.0 Nonrheumatic mitral (valve) insufficiency; L97.819 Non-pressure chronic ulcer of other part of right lower leg with unspecified severity; D72.829 Elevated white blood cell count, unspecified; E87.6 Hypokalemia; F41.9 Anxiety disorder, unspecified; I10 Essential (primary) hypertension; E78.5 Hyperlipidemia, unspecified; J98.11 Atelectasis; J45.909 Unspecified asthma, uncomplicated; K21.9 Gastro-esophageal reflux disease without esophagitis; Z68.37 Body mass index [BMI] 37.0-37.9, adult; K44.9 Diaphragmatic hernia without obstruction or gangrene; M43.16 Spondylolisthesis, lumbar region; M48.06 Spinal stenosis, lumbar region; Z79.01 Long term (current) use of anticoagulants; Z90.49 Acquired absence of other specified parts of digestive tract
CPT/HCPCS: 36415; 71010-TC; 80048-TC; 80061-TC; 80076-TC; 80202-TC; 81000-TC; 83690-TC; 83735-TC; 84100-TC; 84484-TC; 85025-TC; 85730-TC; 86850-TC; 86921-TC; 87070-TC; 87081-TC; 87086-TC; 87186-TC; 92521; 93971-TC; 94799-TC; 97003-TC; A4606; A6248; A6253; A6402; A6403; J0696; J1170; J2060; J2916; J3370; J3475; J3480; J7030; J7050; J7060; P9016-BL; Z7610